=== PATIENT | female | born 1960 | race Caucasian/White ===

== ENCOUNTER 2025-05-28 06:06 | Day surgery (SDC) | payer OTHER ==
[2025-05-27 09:04] VITALS: BMI 30.2
[2025-05-28 11:35] VITALS: RESP 16; TEMP 97.3
[2025-05-28] MEDS: LIDOCAINE HCL 1% PRESERVATIVE FREE - 30ML VIAL IJ ONE (13:08)
[2025-05-28] MEDS: IOHEXOL 180 MG/1 ML ML IJ ONE (13:08)
[2025-05-28] MEDS: DEXAMETHASONE SOD PHOSPHATE 10 MG/1 ML VIAL IVPUSH ONE (13:11)
[2025-05-28 13:49] VITALS: BP 125/85; PULSE 83
[2025-05-28] MEDS ORDERED: ACETAMINOPHEN 500 MG TABLET (FP) PO PRN (20:31)
== END 2025-05-28 13:40 | disposition home or self-care (01) ==
LOC: JASU-SURG 06:06
PROVIDERS: ATTEND Pain Medicine Pain Medicine
PROC: 3E0T3BZ Introduction of Anesthetic Agent into Peripheral Nerves and Plexi, Percutaneous Approach (ICD-10-PCS; 2025-05-28)
PROC: 3E0T33Z Introduction of Anti-inflammatory into Peripheral Nerves and Plexi, Percutaneous Approach (ICD-10-PCS; principal; 2025-05-28 12:00)
DX: M53.3 Sacrococcygeal disorders, not elsewhere classified (principal)
CPT/HCPCS: 76000-TC-FY; J1100